=== PATIENT | female | born 1985 | race Caucasian/White ===

== ENCOUNTER 2017-01-22 21:26 | Emergency (ER) | payer BC, OTHER ==
[2017-01-22] MEDS ORDERED: Sodium Chloride 0.9% 1,000 ML IV ONE (21:28)
[2017-01-22 21:59] VITALS: BP 107/69
[2017-01-22 21:59] LABS: CHLORIDE,CL 103 mmol/L (101-111); SODIUM,NA 136 mmol/L (135-145)
--- NOTE | 2017-01-22 22:02 | EDM.PDOC ---
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 Estimates 15 weeks by ultrasound, last on 12/26. Unsure LMP as conceived while breast feeding. , SAB1 @8weeks. Reports light spotting and cramping starting at 3pm, Heavy bleeding around 6pm "with gush of blood". Stated that the "pulled the sac" but " some tissue still up there". Mild to moderate cramping. Experienced low platelets at end of past pregnancies. NPO since 7pm. - Related Data Allergies Allergy/AdvReac Type Severity Reaction Status Date / Time penicillin V Allergy Mild Hives Verified 01/22/17 21:41 Penicillins Allergy Mild Hives Verified 01/22/17 21:41 Home Meds: Home Meds Acetaminophen 650 mg PO Q4H PRN 12/09/15 [History] PNV95/Ferrous Fumarate/FA [ Vitamin Tablet] 1 each PO DAILY 12/09/15 [ History] Past Medical History - Past Health History Medical/Surgical History: Denies Medical/Surgical History HEENT History: Reports: Other (See Below) Other HEENT History: Hx nasal septum surgery Cardiovascular History: Reports: Other (See Below) Other Cardiovascular History: Gestational Hypertension Respiratory History: Reports: None Gastrointestinal History: Reports: None Genitourinary History: Reports: None 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 History: Reports: Musculoskeletal History: Reports: None Neurological History: Reports: None Psychiatric History: Reports: None Endocrine/Metabolic History: Reports: None Hematologic History: Reports: Other (See Below) Other Hematologic History: hx Thrombocytopenia Immunologic History: Reports: None Oncologic (Cancer) History: Reports: None Dermatologic History: Reports: None - Infectious Disease History Infectious Disease History: Reports: None - Past Surgical History Head Surgeries/Procedures: Reports: None Social & Family History - Family History Family Medical History: Noncontributory - Tobacco Use Smoking Status *Q: Never Smoker - Caffeine Use Caffeine Use: Reports: Soda - Recreational Drug Use Recreational Drug Use: No ED ROS GENERAL - Review of Systems Review Of Systems: ROS reveals no pertinent complaints other than HPI. ED EXAM - Physical Exam Exam: See Below Exam Limited By: No Limitations General Appearance: Alert, No Apparent Distress Eye Exam: Bilateral Eye: EOMI Ears: Normal External Exam Throat/Mouth: Normal Voice Head: Atraumatic, Normocephalic Neck: Normal Inspection, Full Range of Motion Respiratory/Chest: No Respiratory Distress Cardiovascular: Regular Rate, Rhythm, Tachycardia GI/Abdominal Exam: Soft (Female) Exam: Tissue Present in Cervix/Vagina, Uterine Tenderness, Vaginal Bleeding (bright red pooling with clots in vaginal vault, perea shiny tissue present. ). No: Normal Speculum Exam Course - Vital Signs Last Recorded V/S: Last Vital Signs Temp 98.1 F 01/22/17 21:58 Pulse 88 01/22/17 21:58 Resp 18 01/22/17 21:58 BP 107/69 01/22/17 21:58 Pulse Ox 100 01/22/17 21:58 - Orders/Labs/Meds Orders: Active Orders 24 hr Category Date Time Status Potassium Chloride [KCl 10 MEQ in Water 100 ML] 10 meq Med 01/22/17 22:05 Ordered Premix Bag 1 bag IV ONETIME Sodium Chloride 0.9% [Normal Saline] 1,000 ml Med 01/22/17 21:28 Active IV .BOLUS Medication Orders Sodium Chloride (Normal Saline) 1,000 mls @ 999 mls/hr IV .BOLUS ONE Stop: 01/22/17 22:28 Last Admin: 01/22/17 21:35 Dose: 999 mls/hr Potassium Chloride 10 meq/ (Premix) 100 mls @ 100 mls/hr IV ONETIME ONE Stop: 01/22/17 23:04 Last Admin: 01/22/17 22:13 Dose: 100 mls/hr Labs: Laboratory Tests 01/22/17 01/22/17 01/22/17 Range/Units 21:33 21:33 21:33 WBC 12.7 H (5.0-10.0) 10^3/uL RBC 4.52 (4.2-5.4) 10^6/uL Hgb 13.6 (12.0-16.0) g/dL Hct 39.2 (37.0-47.0) % MCV 86.7 (80-100) fL MCH 30.1 (27.0-34.0) pg MCHC 34.7 (33.0-35.0) g/dL Plt Count 200 (150-450) 10^3/uL Neut % (Auto) 65.3 (42.2-75.2) % Lymph % (Auto) 26.7 (20.5-50.1) % [place] % (Auto) 6.1 (2-8) % Eos % (Auto) 1.7 (1.0-3.0) % Baso % (Auto) 0.2 (0.0-1.0) % Sodium 136 (135-145) mmol/L Potassium 3.0 L (3.6-5.0) mmol/L Chloride 103 (101-111) mmol/L Carbon Dioxide 21.0 (21.0-31.0) mmol/L Anion Gap 15.0 BUN 9 (7-18) mg/dL Creatinine 0.5 L (0.6-1.3) mg/dL Est Cr Clr Drug Dosing 161.44 mL/min Estimated GFR (MDRD) > 60 BUN/Creatinine Ratio 18.00 Glucose 127 H (74-105) mg/dL Calcium 9.3 (8.4-10.2) mg/dl Total Bilirubin 0.4 (0.2-1.0) mg/dL AST 17 (10-42) IU/L ALT 8 L (10-60) IU/L Alkaline Phosphatase 61 (42-121) IU/L Total Protein 6.7 (6.7-8.2) g/dl Albumin 3.8 (3.2-5.5) g/dl Globulin 2.9 Albumin/Globulin Ratio 1.31 HCG, Quant 326 H (0-25) mIU/ml Beta HCG, Quant < 1050 mIU/ml Blood Type Gel Antibody Screen 01/22/17 Range/Units 21:33 WBC (5.0-10.0) 10^3/uL RBC (4.2-5.4) 10^6/uL Hgb (12.0-16.0) g/dL Hct (37.0-47.0) % MCV (80-100) fL MCH (27.0-34.0) pg MCHC (33.0-35.0) g/dL Plt Count (150-450) 10^3/uL Neut % (Auto) (42.2-75.2) % Lymph % (Auto) (20.5-50.1) % [place] % (Auto) (2-8) % Eos % (Auto) (1.0-3.0) % Baso % (Auto) (0.0-1.0) % Sodium (135-145) mmol/L Potassium (3.6-5.0) mmol/L Chloride (101-111) mmol/L Carbon Dioxide (21.0-31.0) mmol/L Anion Gap BUN (7-18) mg/dL Creatinine (0.6-1.3) mg/dL Est Cr Clr Drug Dosing mL/min Estimated GFR (MDRD) BUN/Creatinine Ratio Glucose (74-105) mg/dL Calcium (8.4-10.2) mg/dl Total Bilirubin (0.2-1.0) mg/dL AST (10-42) IU/L ALT (10-60) IU/L Alkaline Phosphatase (42-121) IU/L Total Protein (6.7-8.2) g/dl Albumin (3.2-5.5) g/dl Globulin Albumin/Globulin Ratio HCG, Quant (0-25) mIU/ml Beta HCG, Quant mIU/ml Blood Type O POSITIVE Gel Antibody Screen Negative Meds: Medications Generic Name Dose Route Start Last Admin Trade Name rFanklin PRN Reason Stop Dose Admin Sodium Chloride 1,000 mls @ 999 mls/hr 01/22/17 21:28 01/22/17 21:35 Normal Saline IV 01/22/17 22:28 999 mls/hr .BOLUS ONE Administration Potassium Chloride 10 meq/ 100 mls @ 100 mls/hr 01/22/17 22:05 01/22/17 22:13 Premix IV 01/22/17 23:04 100 mls/hr ONETIME ONE Administration - Re-Assessments/Exams Free Text/Narrative Re-Assessment/Exam: 01/22/17 22:[address] Fagan and Dr. Ibanez. recommend tx to [facility] due trimester. Dr. Collins accepting of patient for further management. Tx via [facility], stable Vital signs, tachycardia improved with IVF. Departure - Departure Time of Disposition: 22:27 Disposition: DC/Tfer to Acute Hospital 02 Condition: Undetermined Clinical Impression: Incomplete - Discharge Information Forms: ED Department Discharge - My Orders Last 24 Hours: My Active Orders 01/22/17 21:28 Sodium Chloride 0.9% [Normal Saline] 1,000 ml IV .BOLUS 01/22/17 22:05 Potassium Chloride [KCl 10 MEQ in Water 100 ML] 10 meq Premix Bag 1 bag IV ONETIME - Assessment/Plan Last 24 Hours: My Active Orders 01/22/17 21:28 Sodium Chloride 0.9% [Normal Saline] 1,000 ml IV .BOLUS 01/22/17 22:05 Potassium Chloride [KCl 10 MEQ in Water 100 ML] 10 meq Premix Bag 1 bag IV ONETIME
[2017-01-22] MEDS ORDERED: Potassium Chloride 10 MEQ in Premix Bag 1 BAG IV ONE (22:05)
== END 2017-01-22 22:20 ==
LOC: DL.ED 21:26
DX: O03.4 Incomplete spontaneous abortion without complication (principal); O13.9 Gestational [pregnancy-induced] hypertension without significant proteinuria, unspecified trimester; Z88.0 Allergy status to penicillin
CPT/HCPCS: 36415; 80053; 84702; 85025; 86850; 86900; 86901; 96361; 96374; 99284; J3480; J7030